=== PATIENT | male | born 1975 | race Caucasian/White ===

== ENCOUNTER 2023-03-07 19:11 | Emergency (ER) | payer OTHER, SELFPAY ==
[2023-03-07] VITALS (15 sets, daily range): BP systolic 144–175; BP diastolic 68–100; PULSE 82–93; RESP 12–18; TEMP 36.4; O2SAT 95–99; BMI 31.9
--- NOTE | 2023-03-07 19:37 | ED.NURSE ---
[facility] paged for stroke code.
--- NOTE | 2023-03-07 19:39 | CRLHL7_ITS ---
For Patients: As a result of the Century Cures Act, medical imaging exams and procedure reports are released immediately into your electronic medical record. You may view this report before your referring provider. If you have questions, please contact your health care provider. CT ANGIOGRAM HEAD DATE: 03/07/2023 CLINICAL HISTORY: Patient with altered mental status. TECHNIQUE: Standard helical CT image acquisition through the intracranial circulation following intravenous administration of contrast material with bolus tracking. 2D and 3D MIP images for post-processing were performed and interpreted on an independent workstation and 3D images were permanently archived. COMPARISON: CT same day. FINDINGS: There is no proximal intracranial large vessel occlusion. There is no intracranial aneurysm. The right internal carotid artery is normal. The right middle cerebral artery and its branches are normal. The right anterior cerebral artery and its branches are normal. The left internal carotid artery is normal. The left middle cerebral artery and its branches are normal. The left anterior cerebral artery and its branches are normal. The anterior communicating artery is well visualized and appears normal. The right vertebral artery and PICA are normal. The left vertebral artery and PICA are normal. The left vertebral artery is dominant. The basilar artery is patent and appears normal. The right posterior cerebral artery is normal. The left posterior cerebral artery is normal. The visualized venous structures are patent. IMPRESSION: Patent proximal intracranial vasculature. Findings were communicated to Dr. Sanon at 8:25 PM. Please note that all CT scans at this facility use dose modulation, iterative reconstruction, and/or weight-based dosing when appropriate to reduce radiation dose to as low as reasonably achievable. Dictated by: Jaskaran Baker MD @ 03/07/2023 20:28:34 (Electronically Signed)
--- NOTE | 2023-03-07 19:39 | CRLHL7_ITS ---
For Patients: As a result of the Century Cures Act, medical imaging exams and procedure reports are released immediately into your electronic medical record. You may view this report before your referring provider. If you have questions, please contact your health care provider. CT ANGIOGRAM NECK DATE: 03/07/2023 CLINICAL HISTORY: Patient with dizziness and altered mental status. TECHNIQUE: Standard helical CT image acquisition of the neck up to the skull base after bolus intravenous contrast enhancement. 2D and 3D MIP images for post-processing were performed and interpreted on an independent workstation and 3D images were permanently archived. COMPARISON: CT same day. FINDINGS: The origins of the great vessels from the aortic arch are patent. The origin of the right vertebral artery is patent. The origin of the left vertebral artery is patent. The common carotid arteries are patent. There is no stenosis at the origin of the right internal carotid artery. There is no stenosis at the origin of the left internal carotid artery. The rest of the cervical segments of the internal carotid arteries are patent up to the skull base. The left vertebral artery is dominant. The cervical segments of the vertebral arteries are patent up to the skull base. The visualized lung apices are unremarkable. The thyroid gland is unremarkable. The soft tissues of the neck are unremarkable. There are degenerative changes in the cervical spine. IMPRESSION: Normal CTA of the neck. Findings were communicated to Dr. Sanon at 8:25 PM. Please note that all CT scans at this facility use dose modulation, iterative reconstruction, and/or weight-based dosing when appropriate to reduce radiation dose to as low as reasonably achievable. Dictated by: Jaskaran Baker MD @ 03/07/2023 20:26:15 (Electronically Signed)
--- NOTE | 2023-03-07 19:40 | CRLHL7_ITS ---
For Patients: As a result of the Century Cures Act, medical imaging exams and procedure reports are released immediately into your electronic medical record. You may view this report before your referring provider. If you have questions, please contact your health care provider. CT HEAD DATE: 03/07/2023 CLINICAL HISTORY: Patient with vertigo and altered mental status. TECHNIQUE: Standard CT scanning of the head was performed. COMPARISON: None. FINDINGS: There is no intracranial hemorrhage. There is no territorial infarction. There are mild microangiopathic changes. There is diffuse parenchymal volume loss. There is no mass effect or midline shift. The calvarium is unremarkable. The orbits are unremarkable. The paranasal sinuses are unremarkable. The mastoid air cells are unremarkable. The soft tissues are unremarkable. IMPRESSION: 1. No intracranial hemorrhage or territorial infarction. 2. Mild microangiopathic changes and diffuse parenchymal volume loss. Please note that all CT scans at this facility use dose modulation, iterative reconstruction, and/or weight-based dosing when appropriate to reduce radiation dose to as low as reasonably achievable. Dictated by: Jaskaran Baker MD @ 03/07/2023 20:22:21 (Electronically Signed)
--- NOTE | 2023-03-07 19:59 | ED_ITS ---
HPI - General Adult General Date Seen: 03/07/23 Chief complaint: Neuro Symptoms/Altered Deficit Stated complaint: Dizzy, not feeling great Time Seen by Provider: 03/07/23 19:36 History of Present Illness HPI narrative: This is a pleasant 47-year-old gentleman who was recently diagnosed with hypertension and dyslipidemia. He was started on a cholesterol med and a blood pressure medicine about a month ago. He has been taking them. He is brought to the ER today by his for evaluation of acute onset of neurologic knows that it began around 5:00 p.m. today while he was at work. 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 He was working most of the afternoon. He was working with chemicals but does not recall any specific symptoms while he was using the sink pan cleaner or other chemicals. He recalls that part of the school or quite hot, about 80?. He was having his lunch break at about 5:00 p.m.. He ate a ham sandwich. After eating he began to feel dizzy. He recalls feeling very dizzy as if the room was spinning and sometimes moving back and forth. His vision went blurry. He thought maybe he needed some fresh air so we got up to walk around. He felt dizzy while walking but was able to keep his balance. He sat down to drink some water and while sitting and drinking he felt somewhat better but not back to normal. He was again trying to walk around he began to get quite dizzy to the point where he was falling sideways in Ej banging into the howard of the hallway. He went outside to get some fresh air and called his . He noticed that when he came outside he started to feel a bit better. He did not have any diplopia. No headache. No palpitations. No chest pain. No shortness of breath. History from his is that when she picked him up she noted him to seem a little confused. He seemed to have cognitive slowing. She did not notice any definite slurred speech, facial droop, or unilateral weakness. He does have a chronic left ankle injury from hockey so always limbs on that leg but no other acute change. He seemed sweaty. He was traveling to [place] last week and had a couple of days of fun partying with his friends but denies any drugs. He was drinking some with skin some alcohol. He got home Tuesday morning and has now been home about 48 hours. He went to work in the late morning today, is usually does not was feeling fine all day until his supper break at about 5. Now that he is here in the ER his symptoms have mostly abated. His cognitive slowing is improved. His dizziness is resolved. Vision is not blurry anymore. Related Data Home Medications Medication Instructions Recorded Confirmed amlodipine 5 mg tablet 5 mg PO DAILY 03/07/23 03/07/23 atorvastatin 20 mg tablet 20 mg PO DAILY 03/07/23 03/07/23 Previous Rx's Medication Instructions Recorded aspirin 325 mg tablet,delayed 325 mg PO DAILY #14 tabs 03/07/23 release Allergies Allergy/AdvReac Type Severity Reaction Status Date / Time penicillin Allergy Uncoded 03/07/23 20:08 [facility] Social History Smoking Status: Never smoker Do you use any of these nicotine containing products: None How often do you have a drink containing alcohol: never AUDIT-C Alcohol total score: 0 Non-prescribed substance use: denies use Exam Narrative: Exam Narrative: Constitutional: Appears well-developed and well-nourished. Alert. Conversant. Non toxic. HENT: Head: Atraumatic. Nose: Nose normal. Mouth/Throat: Oral mucosa is clear and moist. no trismus. Pharynx normal. Tonsils symmetric. No tonsillar enlargement, erythema, or exudate. Eyes: Conjunctivae normal. EOM normal. Pupils equal, round, and reactive to light. No scleral icterus. Neck: Normal range of motion. Neck supple. No tracheal deviation present. No JVD Cardiovascular: Normal rate, regular rhythm. No gallop. No friction rub. No murmur heard. Symmetric radial artery pulses Pulmonary/Chest: Effort normal. No stridor. No respiratory distress. No wheezes. No rales. No rhonchi . No tenderness. Abdominal: Soft. Bowel sounds normal. No distension. No mass. No tenderness. No rebound. No guarding. Musculoskeletal: RUE: Normal range of motion. No tenderness. No deformity LUE: Normal range of motion. No tenderness. No deformity RLE: Normal range of motion. No edema. No tenderness. No deformity LLE: Normal range of motion. No edema. No tenderness. No deformity Neurological: Mental status normal. Attention normal. Alert and oriented x3. GCS 15. Memory normal. Speech fluent. Cognition normal. Cranial Nerves intact II-XII except I did not formally test gag or visual acuity. EOMI. Palate elevates symmetrically and tongue protrudes in the midline. Strength: 5/5 trapezius on the right and left 5/5 deltoid on the right and left 5/5 biceps on the right and left 5/5 triceps on the right and left 5/5 database manager on the right and left 5/5 thumb opposition on the right and le ft 5/5 finger abduction on the right and le ft 5/5 hip flexors (L3) on the right and le ft 5/5 quadriceps (L4) on the right and lef t 5/5 tibialis anterior on the right and l eft 5/5 EHL (L5) on the right and left 5/5 gastrocnemius (S1) on the right and left 5/5 hamstring on the right and left Sensation intact to light touch in both upper extremities (C4-T1) Sensation intact to light touch in Both lower extremities (L4-S1). Finger to nose and coordination normal. Gait normal. Romberg normal. NIHSS equals 0 at time of my initial evaluation. Skin: Skin is warm and dry. No rash noted. No pallor. Normal capillary refill. Psychiatric: Normal mood. Normal affect. Const: Vital Signs, click to edit/add: Vital Signs - 24 hr 03/07/23 19:22 03/07/23 19:38 03/07/23 19:39 Temperature 97.5 F L Pulse Rate Pulse Rate [Pulse Oximeter] 82 Respiratory Rate 16 Blood Pressure Blood Pressure [Ri ght Upper Arm] 168/88 H Pulse Oximetry 98 98 99 Oxygen Delivery Me thod Room Air 03/07/23 19:48 03/07/23 19:50 03/07/23 19:51 Temperature Pulse Rate 86 85 89 Pulse Rate [Pulse Oximeter] Respiratory Rate 12 18 18 Blood Pressure 164/100 H 167/97 H 164/95 H Blood Pressure [Ri ght Upper Arm] Pulse Oximetry 99 99 99 Oxygen Delivery Me thod 03/07/23 20:55 03/07/23 20:59 03/07/23 21:40 Temperature Pulse Rate 88 88 Pulse Rate [Pulse Oximeter] Respiratory Rate 16 Blood Pressure 157/88 H Blood Pressure [Ri ght Upper Arm] Pulse Oximetry 95 99 [facility] 03/07/23 21:52 03/07/23 22:00 03/07/23 22:01 Temperature Pulse Rate 83 91 89 Pulse Rate [Pulse Oximeter] Respiratory Rate 16 16 16 Blood Pressure 144/86 H 145/68 H 161/91 H Blood Pressure [Ri ght Upper Arm] Pulse Oximetry 96 97 95 Oxygen Delivery Me thod 03/07/23 22:05 03/07/23 22:10 03/07/23 22:11 Temperature 97.5 F L Pulse Rate 93 83 85 Pulse Rate [Pulse Oximeter] Respiratory Rate 16 16 Blood Pressure 145/86 H 175/98 H Blood Pressure [Ri ght Upper Arm] Pulse Oximetry 95 96 96 Oxygen Delivery Me thod Course Vital Signs Vital signs: Initial Vital Signs Temperature 97.5 F L 03/07/23 19:22 Temperature Source Temporal Artery Scan 03/07/23 19:22 Pulse Rate 82 03/07/23 19:22 Respiratory Rate 16 03/07/23 19:22 Blood Pressure 168/88 H 03/07/23 19:22 Blood Pressure Mean 114 H 03/07/23 19:22 Blood Pressure Position Sitting 03/07/23 19:22 Pulse Oximetry 98 03/07/23 19:22 Oxygen Delivery Method Room Air 03/07/23 19:22 Vital Signs Temperature 97.5 F L 03/07/23 19:22 Pulse Rate 82 03/07/23 19:22 Respiratory Rate 16 03/07/23 19:22 Blood Pressure 168/88 H 03/07/23 19:22 Pulse Oximetry 98 03/07/23 19:22 Oxygen Delivery Method Room Air 03/07/23 19:22 Temperature 97.5 F L 03/07/23 22:05 Pulse Rate 85 03/07/23 22:11 Respiratory Rate 16 03/07/23 22:11 Blood Pressure 175/98 H 03/07/23 22:11 Pulse Oximetry 96 03/07/23 22:11 Oxygen Delivery Method Room Air 03/07/23 20:59 Medications Administered Medications: Discontinued Medications Generic Name Dose Route Start Last Admin Trade Name Freq PRN Reason Stop Dose Admin Aspirin 325 mg 03/07/23 20:07 03/07/23 20:20 Aspirin Ec 325 Mg Tablet PO 03/07/23 20:08 325 mg ONCE ONE Administration Medical Decision Making [facility] Narrative Medical decision making narrative: This is a pleasant 47-year-old gentleman with a recent diagnosis of hypertension and dyslipidemia who presents to the ER today with an episode of acute neurologic symptoms including vertigo, blurry vision, mild cognitive slowing. Concern here is for possible acute ischemic stroke or hemorrhagic stroke, TIA, partial seizure, among other explanations for his symptoms. Initial concern was for possible stroke. He was within the window for thrombolytics. We activated a stroke team protocol from triage. He was sent straight for noncontrast head CT . I consulted with Dr. dover, stroke Neurology. Head CT is negative for bleed. Neurology recommends aspirin- ordered. CT angio was negative for any significant stenosis. No LV 0. The patient's neurologic symptoms had essentially resolved around the time he arrived here in the ER. Laboratory workup shows no definitive cause for dizziness or vertigo. He does have hyperglycemia, likely indicating that he probably has on recognize diabetes. No other significant electrolyte abnormality. No evidence for any cardiac arrhythmia or ischemia based on his EKG in workup so far. The concern here is whether not this episode of vertigo represents TIA. I am concerned that it does. Does need discussion with Neurology we determined that the patient could be appropriate for knobs admission with MRI in the morning and neurology consultation tomorrow. If the patient does not want to stay, then the patient would need to follow-up outpatient with his primary care provider to arrange an outpatient MRI. Neurology would recommend initiation of aspirin once daily until TIA workup is completed as an outpatient He is noted to be hypertensive with blood pressure about 168/88. Will allow that to run for now. Continue his normal outpatient amlodipine. He is hyperglycemic. No evidence for DKA. Suspect prediabetes or new onset diabetes. He will follow up with primary care for further testing, A1c monitoring and initiation of treatment if necessary. Had a long discussion with the patient and his . Ultimately he does not want to stay in the hospital under any circumstances. He wants to go home. He is instructed to follow-up with his primary care provider soon as possible. He is invited to return to the ER. We can try to get an ER bed MRI tomorrow during business hours, but I am not able to pre schedule that test or guarantee that he would be able to get imaging done if he comes back to the ER tomorrow. He is instructed to return immediately if he has any recurrent neurologic symptoms such as vertigo, dizziness, sweatiness, or any other concerns. He and his verbalized her understanding and wished to go home. Lab Data Labs: Lab Results 03/07/23 Range/Units 19:39 WBC 12.41 H (4.50-11.00) K/uL RBC 5.21 (4.30-5.90) m/uL Hgb 13.8 (13.5-17.5) gm/dL Hct 42.5 (37.0-53.0) % MCV 82 (80-100) fL MCH 27 (26-34) pg MCHC 33 (32-36) gm/dL RDW Coeff of Telly 13.3 (11.5-15.5) % Plt Count 350 (140-440) K/uL Neut % (Auto) 78.2 H (42.0-72.0) % Lymph % (Auto) 14.6 L (20-44) % [place] % (Auto) 5.0 (0.0-11.0) % Eos % (Auto) 1.3 (0.0-7.0) % Baso % (Auto) 0.3 (0.0-3.0) % Neut # (Auto) 9.70 H (1.7-7.0) K/uL Lymph # (Auto) 1.80 (0.90-2.90) K/uL Pickens # (Auto) 0.60 (0.00-0.90) K/UL Eos # (Auto) 0.20 (0.00-0.50) K/uL Baso # (Auto) 0.00 (0.00-0.30) K/uL Abs Immat Gran (auto) 0.10 (0.00-0.30) K/uL Imm/Tot Granulo (auto) 0.6 % INR 0.92 (0.91-1.10) APTT 30 (23-33) Seconds Sodium 139 (135-149) mmol/L Potassium 4.1 (3.6-5.1) mmol/L Chloride 102 (96-114) mmol/L Carbon Dioxide 26 (20-32) mmol/L Anion Gap 11 (7-15) mEq/L BUN 12 (5-24) mg/dL Creatinine 0.8 (0.5-1.5) mg/dL Estimated Creat Clear 112.92 Estimated GFR 109 ml/min Glucose 204 H (60-115) mg/dL Calcium 9.6 (8.4-10.6) mg/dL Imaging Data CT scan - head: Attestation: I have reviewed the pertinent imaging results. Radiologist's impression: MPRESSION: 1. No intracranial hemorrhage or territorial infarction. 2. Mild microangiopathic changes and diffuse parenchymal volume loss. CTA head/neck: Attestation: I have reviewed the pertinent imaging results. Radiologist's impression: IMPRESSION: Normal CTA of the neck. IMPRESSION: Patent proximal intracranial vasculature. ECG Data Attestation: I personally reviewed and interpreted this ECG as follows: Interpretation: Normal sinus rhythm . Rate 94 RI 188 QRS axis normal axis. No pathologic Q-waves. ST segment/T wave: No ST segment elevation or depression QTc: 457 Discharge Plan Discharge Clinical Impression: Brain TIA, Hyperglycemia, Vertigo Patient Disposition: Home, Self-Care Condition: Stable Instructions: Transient Ischemic Attack (ED), Vertigo (DC) Additional Instructions: Please return to the ER immediately if you have any recurrent dizzy spells, blurry vision, confusion, or other neurologic symptoms Follow-up with your primary care provider as soon as possible for re-evaluation. You will need an MRI of your brain for further testing. Until you can see your doctor take aspirin 1 dose daily. Continue on your other blood pressure and cholesterol medications. Prescriptions: New aspirin 325 mg tablet,delayed release (DR/EC) 325 mg PO DAILY Qty: 14 2RF No Action atorvastatin 20 mg tablet 20 mg PO DAILY amlodipine 5 mg tablet 5 mg PO DAILY Follow Up/Referrals: Efraín Lou, JUSTIN, ATC, CSCS [Primary Care Provider] - Stand Alone Forms: [facility] Info Instructions
[2023-03-07 20:04] LABS: Basophils Percent Auto 0.3 % (0.0-3.0); Eosinophils Percent Auto 1.3 % (0.0-7.0); Hematocrit 42.5 % (37.0-53.0); Hemoglobin* 13.8 gm/dL (13.5-17.5); Immature Granulocytes Pct Auto 0.6 %; Lymphocytes Percent Auto 14.6 % (20-44); Mean Corpuscular HGB Conc 33 gm/dL (32-36); Mean Corpuscular Hemoglobin 27 pg (26-34); Mean Corpuscular Volume 82 fL (80-100); Neutrophils Percent Auto 78.2 % (42.0-72.0); Platelet Count* 350 K/uL (140-440); RDW Coefficient of Variation % 13.3 % (11.5-15.5); Red Blood Count 5.21 m/uL (4.30-5.90); White Blood Count* 12.41 K/uL (4.50-11.00)
[2023-03-07] MEDS: ASPIRIN EC 325 MG TABLET PO (20:20)
[2023-03-07 20:26] LABS: Slide Review Reflex No
[2023-03-07 20:34] LABS: Chloride* 102 mmol/L (96-114); Sodium* 139 mmol/L (135-149)
[2023-03-07 20:35] LABS: Potassium* 4.1 mmol/L (3.6-5.1)
[2023-03-07 20:37] LABS: Anion Gap 11 mEq/L (7-15); Carbon Dioxide* 26 mmol/L (20-32); Creatinine* 0.8 mg/dL (0.5-1.5); Est. Creatinine Clearance* 112.92; Estimated Glomerular Filt Rate 109 ml/min
[2023-03-07 20:38] LABS: Blood Urea Nitrogen* 12 mg/dL (5-24); Calcium* 9.6 mg/dL (8.4-10.6); Glucose* 204 mg/dL (60-115)
[2023-03-07 20:39] LABS: INR 0.92 (0.91-1.10); Prothrombin Time 12.9 Seconds
[2023-03-07 22:03] LABS: Partial Thromboplastin Time* 30 Seconds (23-33)
--- NOTE | 2023-03-07 22:18 | PC.NURSE ---
patient DC ambulatory in no distress with . states understanding to DC instructions. no further questions
--- NOTE | 2023-03-09 17:56 | ED.NURSE ---
Patient seen 03/07/[address] Haney, calls requesting note that allows him to return to work. 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 Patient reports he has an appointment tomorrow with PCP to get MRI scheduled. 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
--- NOTE | 2023-05-19 14:43 | ED.NURSE ---
Accessed chart as [facility] was calling to request a refill of his aspirin 324mg that Dr. Haney prescribed. Per Dr. Haney's note, patient needs to follow up with PCP. This information was given to pharmacist and he will be reaching out to patient.
== END 2023-03-07 22:20 | disposition home or self-care (01) ==
PROVIDERS: Emergency Provider Emergency Medicine
DX: G45.8 Other transient cerebral ischemic attacks and related syndromes (principal); R73.9 Hyperglycemia, unspecified
CPT/HCPCS: 36415; 70450; 70496; 70498; 80048; 82962; 85025; 85610; 85730; 93005; 94761; 99284; 99285; A9270; Q9967

== ENCOUNTER 2024-08-26 18:41 | Emergency (ER) | payer OTHER, SELFPAY ==
--- OUTSIDE RECORDS SUMMARY | 2024-08-26 18:43 | XMS_ITS | Clinical Summary ---
[facility] Organization [facility] Address [address] [place] [address] Care Team Providers Care Scrap Shear Operator Name Role Phone Jethro Hunter PA-C Primary Care Provider Source Comments You are receiving this document as you are listed as the primary care provider,follow-up provider, or the patient has been referred to you for consultation.This is in compliance with the Medicare and[employer] EHR Incentive Program,which states Providers who transition their patient to another setting of careor provider of care or refers their patient to another provider of care shouldprovide summary care record for each transition of care or referral. Smart Voicemail Allergies Active Allergy Reactions Criticality Noted Date Comments Penicillins Rash 07/17/2012 Medications Multiple Vitamins-Minerals (MULTIVITAL OR) Take by mouth. 6 Active ascorbic acid (AKA VITAMIN C) 500 MG tablet Take 1 Tablet (500 mg) by mouth two times a day. 6 Active ibuprofen (MOTRIN) 800 MG tablet Take 1 Tab by mouth every 8 hours as needed for Pain. 30 Tab 7 Active cholecalciferol (VITAMIN D3) 25 MCG (1000 UT) tablet Take 1 Tablet (1,000 Units) by mouth daily. Active aspirin EC 81 MG enteric coated tablet Take 1 Tablet (81 mg) by mouth daily. 90 Tablet 3 4 Active metFORMIN XR (GLUCOPHAGE XR) 500 MG 24 hour release tabletIndications:T ype 2 diabetes mellitus treated without insulin (HRC) Take 500mg XR (1 tab) daily for 1 week, then 1000mg XR (2 tabs) daily for 1 week, then 1500mg XR (3 tabs) daily for 1 week, then 2000mg XR (4 tabs) daily. 120 Tablet 3 5 Active amLODIPine-benazepr il (LOTREL) 5-20 MG capsuleIndications: Essential hypertension (HRC) Take 1 Capsule by mouth daily. 90 Capsule 3 5 Active atorvastatin (LIPITOR) 20 MG tabletIndications:H yperlipidemia, unspecified hyperlipidemia type (HRC) Take 1 Tablet (20 mg) by mouth daily. 90 Tablet 3 5 Active Active Problems Problem Noted Date Diagnosed Date Essential hypertension 01/26/2023 Overview (01/26/2023): CBC, CMP and TSH 12/2022 WNL Type 2 diabetes mellitus with hyperglycemia 01/01 Overview (01/20/2023): A1C 6.5%, will need statin, needs prevnar 20 Mixed hyperlipidemia 01/20/2023 Overview (01/20/2023): Lipid panel 12/2022 chopl 236, HDL 37, LDL 127, tri 358, shoulder start a statin as he is a DM2 Obesity due to excess calori es, unspecified obesity severity 01/17/2023 Overview (01/20/2023): BMI 34.6, TSH 12/2022 1.58 Gastroesophageal reflux disease without esophagi tis 01/17/2023 Overview (01/17/2023): Is on omeprazole 20mg Qdaily OTC Vitamin D deficiency 01/17/2023 Overview (01/20/2023): Vit D 12/2022 37 Resolved Problems Problem Noted Date Diagnosed Date Resolved Date Elevated blood pressure read ing without diagnosis of hypertension 01/17/2023 01/26/2023 Overview (01/26/2023): Noted on first visit, F/U on repeat, Encounters Date Type Department Care Team Description 06/29/2024 Results Follow-Up [address] [phone] Jethro Hunter PA-C 06/28/2024 5:10 PM DIDACTIC PROGRAM IN DIETETICS DIRECTOR Lab Visit [address] [phone] Hyperlipidemia, unspecified hyperlipidemia type (HRC); Essential hypertension (HRC) 06/28/2024 4:30 PM DIDACTIC PROGRAM IN DIETETICS DIRECTOR Office Visit [address] [phone] Jethro Hunter PA-C Type 2 diabetes mellitus treated without insulin (HRC) (Primary Dx); Essential hypertension (HRC); Hyperlipidemia, unspecified hyperlipidemia type (HRC); Screen for colon cancer 06/15/[address] [phone] Jethro Hunter PA-C Refill (atorvastatin (LIPITOR) 20 MG tablet [Pharmacy Med Name: Atorvastatin Calcium Oral Tablet 20 MG]; amLODIPine-benazepril (LOTREL) 5-20 MG capsule [Pharmacy Med Name: amLODIPine Besy-Benazepril HCl Oral Capsule 5-20 MG]) 06/06/[address] [address] Radha Gan LAB RESULTS 06/05/2024 6:20 PM DIDACTIC PROGRAM IN DIETETICS DIRECTOR Lab Visit [address] [phone] Type 2 diabetes mellitus (HRC) 06/05/2024 6:00 PM DIDACTIC PROGRAM IN DIETETICS DIRECTOR Office Visit [place] [address] [facility] [address] [place] [phone] Samantha Kilgore MD Acute bronchitis, unspecified organism; Pre-diabetes from Last 3 Months Immunizations Immunization Administration Dates Next Due Td (7+ yrs) 12/25/2003 Family History Medical History Relation Name Comments HTN Mother Yudy Stroke Mother Yudy x2 Cancer Maternal Aunt 1 Margarita Cancer Maternal Aunt 2 Funmilayo Stroke Maternal Aunt 3 Katey Khalil Relation Name Status Comments Mother Yudy Maternal Aunt 1 Margarita Maternal Aunt 2 Funmilayo Maternal Aunt 3 Katey Khalil Social History Tobacco Use Types Packs/Day Years Used Date Smoking Tobacco: Never Smokeless Tobacco: Never Tobacco Cessation:Counseling Given: Not Answered Alcohol Use Standard Drinks/Week Comments Yes 0 (1 standard drink = 0.6 oz pur e alcohol) PHQ-2 Answer Date Recorded PHQ-2 Score 0 06/28/2024 Financial Resource Strain Answer Date R ecorded Is it hard for you to pay fo r the very basics like food, housing, medical care or heating? No 01/17/2023 Food Insecurity Answer Date Recorded Does your food run out before you have the money to buy more? No 01/17/2023 Transportation Needs Answer Date Record ed Does a lack of transportatio n keep you from your medical appointments or from getting your medications? No 023 Sex and Gender Information Value Date Recorded Sex Assigned at Not on file Legal Sex Male 5:55 AM CDT Gender Identity Not on file Sexual Orientation Not on file Last Filed Vital Signs Vital Sign Reading Time Taken Comments Blood Pressure 129/78 06/28/2024 4:29 PM DIDACTIC PROGRAM IN DIETETICS DIRECTOR Pulse 70 06/28/2024 4:29 PM DIDACTIC PROGRAM IN DIETETICS DIRECTOR Temperature 36.8 C (98.3 F) 06/05/2024 5:26 PM DIDACTIC PROGRAM IN DIETETICS DIRECTOR Respiratory Rate 16 06/28/2024 4:14 PM DIDACTIC PROGRAM IN DIETETICS DIRECTOR Oxygen Saturation 98% 06/05/2024 5:26 PM DIDACTIC PROGRAM IN DIETETICS DIRECTOR Inhaled Oxygen Concentration - - Weight 105.2 kg (232 lb) 06/28/2024 4:14 PM DIDACTIC PROGRAM IN DIETETICS DIRECTOR Height 172.1 cm (5' 7.75) 06/28/2024 4:14 PM CS T Body Mass Index 35.54 06/28/2024 4:14 PM DIDACTIC PROGRAM IN DIETETICS DIRECTOR Plan of Treatment Upcoming Encounters Date Type Department Care Team (Late st Contact Info) Description 08/27/2024 5:00 PM CDT Appointment [place] [address] [facility] [address] [place] [phone] Jethro Hunter PA-C [address] [place] [address] Health Maintenance Due Date Last Done Comments HepB Vaccine (1) 1993 Pneumococcal Vaccine (1 of 2 - PCV) 1993 COVID-19 Vaccine (1 - season) 2024 Influenza Vaccine (#1) 2024 Adult Preventive Visit 01/18/2024 01/17/2023 FIT Colon Cancer Screening 05/26/2024 05/26/2023 Zoster/Shingles Vaccine (1 of 2) 2024 Diabetes: HGBA1C 12/03/2024 06/05/2024, , 01/17/2023 Diabetes: Eye Exam 05/09/2025 05/09/2024 (C ompleted), 06/08/2023 (Completed) DTaP/Tdap/Td Vaccine (2 - Tdap) 05/22/2025 05/22/2015 (Completed), 12/25/2003 Diabetes: Urine Microalbumin 06/05/2025 06/05/2024, 05/24/2023 Diabetes: Creatinine 06/28/2025 06/28/2024, 05/24/2023, 01/17/2023, Additional history exists Diabetes: Foot Exam 06/28/2025 06/28/2024 ( Completed), 06/10/2023 (Completed) Diabetes: Lipid Panel 06/28/2029 06/28/2024 , 05/24/2023, 01/17/2023 HIV Screening (Preventive Services) Completed 01/17/2023 Hep C Screening (Preventive Services) Completed 01/17/2023 Cholesterol Discontinued 06/28/2024, 05/03, 01/17/2023 HepA Vaccine Aged Out No longer eligi ble based on patient's age to complete this topic Hib Vaccine Aged Out No longer eligi ble based on patient's age to complete this topic IPV (Polio) Vaccine Aged Out No longe r eligible based on patient's age to complete this topic MCV4 Vaccine Aged Out No longer eligi ble based on patient's age to complete this topic Meningococcal B Vaccine Aged Out No l onger eligible based on patient's age to complete this topic Procedures Procedure Name Priority Date/Time Associated Diagnosis Comments BASIC METABOLIC PANEL Routine 06/28/2024 5:05 PM DIDACTIC PROGRAM IN DIETETICS DIRECTOR Essential hypertension (HRC) LIPID PANEL & DIRECT LDL (IF NEEDED) Routine 06/28/2024 5:05 PM DIDACTIC PROGRAM IN DIETETICS DIRECTOR Hyperlipidemia, unspecified hyperlipidemia type (HRC) ALBUMIN/CREAT RATIO Routine 06/05/2024 6:13 PM DIDACTIC PROGRAM IN DIETETICS DIRECTOR Type 2 diabetes mellitus (HRC) HGB A1C Routine 06/05/2024 6:09 PM DIDACTIC PROGRAM IN DIETETICS DIRECTOR Type 2 diabetes mellitus (HRC) FIT,OCCULT BLOOD, STOOL Routine 05/26/2023 8:00 AM DIDACTIC PROGRAM IN DIETETICS DIRECTOR Screening for colon cancer HIV 1/2 AG/AB 4TH GEN Routine 01/17/2023 6:09 PM CDT Routine screening for STI (sexually transmitted infection) HEPATITIS C ANTIBODY, WITH REFLEX Routine 01/17/2023 6:09 PM CDT Routine screening for STI (sexually transmitted infection) from Last 3 Months or Most Recently Relevant to Health Maintenance Results * (ABNORMAL) Lipid Panel & Direct LDL (if Needed) (06/28/2024 5:05 PM DIDACTIC PROGRAM IN DIETETICS DIRECTOR) Cholesterol 168 0 - 199 mg/dL 06/29/2024 8:52 AM [facility] Triglyceride 333(H) <=149 mg/dL 06/29/2024 8:52 AM [facility] HDL Cholesterol 34(L) >=40 mg/dL 8:52 AM [facility] LDL, Calculated 67 <130 mg/dL 8:52 AM [facility] Non HDL Chol, Calculated 134 <=159 mg/dL 06/29/2024 8:52 AM [facility] Cholesterol/HDL Ratio 4.9 <=5.0 06/29/2024 8:52 AM [facility] Hours Fasting 0.0 8 - 12 Hours 06/29/2024 8:52 AM [facility] Blood Venipuncture / Unknown 06/28/2024 5:05 PM DIDACTIC PROGRAM IN DIETETICS DIRECTOR 06/28/2024 5:05 PM DIDACTIC PROGRAM IN DIETETICS DIRECTOR Jethro Hunter PA-C LAB_1 Final Result Performing Organization Address [facility] Co de Phone Number [facility] [address] [place] [address] * (ABNORMAL) Basic Metabolic Panel (06/28/2024 5:05 PM DIDACTIC PROGRAM IN DIETETICS DIRECTOR) [facility] Sodium 136 136 - 145 mmol/L 06/29/2024 8:52 AM [facility] Potassium 4.1 3.5 - 5.1 mmol/L 06/29/2024 8:52 AM [facility] Chloride 101 98 - 109 mmol/L 06/29/2024 8:52 AM [facility] CO2 27 20 - 29 mmol/L 06/29/2024 8:52 AM [facility] Anion Gap 8 6 - 16 mmol/L 06/29/2024 8:52 AM [facility] Calcium 9.4 8.4 - 10.4 mg/dL 06/29/2024 8:52 AM [facility] BUN 16 7 - 26 mg/dL 06/29/2024 8:52 AM [facility] Creatinine 0.86 0.73 - 1.18 mg/dL 06/29/2024 8:52 AM [facility] Glucose 119(H) 70 - 100 mg/dL 06/29/2024 8:52 AM [facility] Comment:The given reference range is for the fasting state. Non-fasting reference range for glucose is 70 - 180 mg/dL. GFR, Estimated >60 >60 mL/min/1.7 3m2 06/29/2024 8:52 AM [facility] Hours Fasting 0.0 8 - 12 Hours 06/29/2024 8:52 AM [facility] Blood Venipuncture / Unknown 06/28/2024 5:05 PM DIDACTIC PROGRAM IN DIETETICS DIRECTOR 06/28/2024 5:05 PM DIDACTIC PROGRAM IN DIETETICS DIRECTOR Jethro J Dale PA-C LAB_1 Final Result Performing Organization Address [facility] de Phone Number [place] [phone] * Albumin/Creatinine Ratio,Random Urine (06/05/2024 6:13 PM DIDACTIC PROGRAM IN DIETETICS DIRECTOR) Albumin/Creati nine Ratio, Urine, Random 20 <30 mg/g 06/06/2024 9:21 AM [facility] Albumin, Urine, Random 24.2 mg/L 06/06/2024 9:21 AM [facility] Creatinine, Urine, Random 121 >20 mg/dL mg/dL 06/06/2024 9:21 AM [facility] Urine Non-blood Collection / Unknown 06/05/2024 6:13 PM DIDACTIC PROGRAM IN DIETETICS DIRECTOR 06/05/2024 6:13 PM [facility] Jethro Hunter PA-C LAB_1 Final Result Performing Organization Address [facility] Phone Number [place] [phone] * (ABNORMAL) Hgb A1C (06/05/2024 6:09 PM DIDACTIC PROGRAM IN DIETETICS DIRECTOR) Pathologist [facility] Hemoglobin A1C 7.1(H) <=5.6 % 06/06/2024 8:11 AM [facility] Estimated Average Glucose (Calc) 157 < 117 mg/dL 06/06/2024 8:11 AM [facility] Comment:Estimated average gl ucose (eAG) converts A1c into glucose units (mg/dL) and estimates average glucose over the past approximately 3 months. The eAG reference interval (<117 mg/dL) corresponds to an A1c of <5.7%. Blood Venipuncture / Unknown 06/05/2024 6:09 PM DIDACTIC PROGRAM IN DIETETICS DIRECTOR 06/05/2024 6:09 PM [facility] Narrative COUNT INCLUDES THE [facility] - 06/06/2024 8:11 AM DIDACTIC PROGRAM IN DIETETICS DIRECTOR For patients not previously diagnosed with diabetes: 5.7-6.4%: Increased risk for diabetes 6.5% and greater: Diagnostic for diabetes For patients diagnosed with diabetes: <8.0%: Goal of therapy for ages 18-75 Clinicians may recommend a higher or lower goal for specific individuals. Jethro Hunter PA-C LAB_1 Final Result Performing Organization Address [facility] Co de Phone Number [facility] [address] * FIT Colon Rectal Cancer Screening (05/26/2023 8:00 AM DIDACTIC PROGRAM IN DIETETICS DIRECTOR) FIT Specimen 1 Negative Negative 05/27/2023 3:24 AM DIDACTIC PROGRAM IN DIETETICS DIRECTOR [facility] Stool 05/26/2023 8:00 AM DIDACTIC PROGRAM IN DIETETICS DIRECTOR 05/26/2023 10:12 PM DIDACTIC PROGRAM IN DIETETICS DIRECTOR Jethro Hunter PA-C LAB_1 Final Result Performing Organization Address [facility] Co de Phone Number [facility] [address] [phone] * HIV 1/2 Ag/Ab 4th Generation (01/17/2023 6:09 PM CDT) HIV 1/2 Antigen/Antib shira (4th generation) Negative (Non Reactive) Negative (Non Reactive) 01/17/2023 10:28 PM CDT [facility] Comment:HIV-1 p24 Antigen an d HIV-1/HIV-2 Antibody not detected Blood Venipuncture / Unknown 01/17/2023 6:09 PM CDT 01/17/2023 6:09 PM CDT Evans Schreiber MD LAB_1 Final Result Performing Organization Address City/[facility]/ZIP Co de Phone Number [facility] [address] [place], [place] [phone] [place] [address] * Hepatitis C Antibody, with Reflex (01/17/2023 6:09 PM CDT) Hepatitis C Antibody Negative (Non Reactive) Negative (Non Reactive) 01/17/2023 10:28 PM CDT [facility] Comment:Antibodies to HCV no t detected. Does not exclude the possiblity of exposure to HCV. Blood Venipuncture / Unknown 01/17/2023 6:09 PM CDT 01/17/2023 6:09 PM CDT Evans Schreiber MD LAB_1 Final Result [facility] [address] [place] [address], [facility] from Last 3 Months or Most Recently Relevant to Health Maintenance Insurance [facility] Care Teams Scrap Shear Operator Relationship Specialty Start Date End Date Jethro Hunter PA-C [address] [place] [address] PCP - General Physician [employer] Parker 03/10/23
--- OUTSIDE RECORDS SUMMARY | 2024-08-26 18:43 | XMS_ITS | Encounter Summary ---
Author Organization [employer] Address [address] [place] [address] Care Team Providers Care Lacquer Sizer Name Role Phone Jethro Hunter PA-C Primary Care Provider Encounter Details Date Type Department Care Team (Late st Contact Info) Description 06/29/2024 Results Follow-Up [place] [address] [facility] Medicine [address] [place] [phone] Jethro Hunter PA-C [address] [place] [address] Social History Tobacco Use Types Packs/Day Years Used Date Smoking Tobacco: Never Smokeless Tobacco: Never Alcohol Use Standard Drinks/Week Comments Yes 0 [...] on file Sexual Orientation Not on file documented as of this encounter Plan of Treatment Upcoming Encounters Date Type Department Care Team (Late st Contact Info) Description 08/27/2024 5:00 PM CDT Appointment [place] [address] [facility] Medicine [address] [place] [address] Jethro Hunter PA-C [address] [place] [address] documented as of this encounter Visit Diagnoses Not on filedocumented in this encounter Care Teams Lacquer Sizer Relationship Specialty Start Date End Date Jethro Hunter PA-C [address] [place], [place] [phone] PCP - General Physician Website/Blog Editor 03/10/23 documented as of this encounter
--- OUTSIDE RECORDS SUMMARY | 2024-08-26 18:43 | XMS_ITS | Clinical Summary ---
Author Organization [facility] Address [address] [place] [address] Care Team Providers Care Elevator Starter Name Role Phone Clinic, [facility] Pr ovider Allergies Active Allergy Reactions Criticality Noted Date Comments Penicillins 09/30/2008 Medications Omeprazole (PRILOSEC PO) Active order for DMEIndications: Knee injury, left, initial encounter Equipment being ordered: knee brace 1 Device 9 Active ibuprofen (ADVIL/MOTRIN) 800 MG tabletIndicatio ns:Knee injury, left, initial encounter Take 1 tablet (800 mg) by mouth every 8 hours as needed for moderate pain 30 tablet 1 9 Active Active Problems No known active problems Social History Tobacco Use Types Packs/Day Years Used Date Smoking Tobacco: Never Smokeless Tobacco: Never Alcohol Use Standard Drinks/Week Comments Not Asked 0 (1 standard drink = 0.6 oz pur e alcohol) Sex and Gender Information Value Date Recorded Sex Assigned at Not on file 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 Gender Identity Not on file Sexual Orientation Not on file Last Filed Vital Signs Vital Sign Reading Time Taken Comments Blood Pressure 126/74 11/08/2018 3:11 PM CDT Pulse 82 11/08/2018 3:11 PM CDT Temperature 37.1 C (98.7 F) 11/08/2018 3:11 PM CDT Respiratory Rate 16 11/08/2018 3:11 PM CDT Oxygen Saturation 96% 11/08/2018 3:11 PM CDT Inhaled Oxygen Concentration - - Weight 103.4 kg (228 lb) 11/08/2018 3:11 PM CDT Height - - Body Mass Index - - Plan of Treatment Not on file Insurance [facility] Care Teams Elevator Starter Relationship Specialty Start Date End Date [facility] [id number] [place] [address] PCP - General 09/28/22
[2024-08-26 18:58] VITALS: BP 155/91; PULSE 86; RESP 18; TEMP 36.9; O2SAT 97; BMI 33.7
--- NOTE | 2024-08-26 19:24 | ED.WOUNDLAC ---
HPI - Wound/Laceration General Date Seen: 08/26/24 Chief Complaint: Laceration/Wound Stated Complaint: Head lac Time Seen by Provider: 08/26/24 19:09 Source: patient Mode of arrival: ambulatory Limitations: no limitations History of Present Illness HPI narrative: Patient is a 48-year-old male presenting for laceration to his forehead. He was putting away a auto damage adjuster it was tried a bungee the auto damage adjuster out when it slipped and hit him in the head. Did not lose consciousness. His family is with him and states he has been acting normally. Denies weakness or numbness. Denies headache, vision changes. No other concerns noted at this time. Did state there was a piece of skin hanging off that he pulled off. Related Data Home Medications ?Medication ?Instructions ?Recorded ?Confirmed amlodipine 5 mg tablet 5 mg PO DAILY 03/07/23 08/26/24 atorvastatin 20 mg tablet 20 mg PO DAILY 03/07/23 08/26/24 aspirin 81 mg tablet,delayed 81 mg PO DAILY 08/26/24 08/26/24 release metformin 500 mg tablet,extended PO 08/26/24 release 24 hr Allergies Allergy/AdvReac Type Severity Reaction Status Date / Time penicillin Allergy Uncoded 03/07/23 20:08 [facility] PFS Social History Smoking Status: Never smoker Do you use any of these nicotine containing products: None How often do you have a drink containing alcohol: never AUDIT-C Alcohol total score: 0 Non-prescribed substance use: denies use Exam Narrative: Exam Narrative: Const: Well-nourished, Well-developed, in mild distress Eyes: PERRL, no conjunctival injection, and symmetrical lids HENT: Atraumatic external nose and ears. Moist mucous membranes. MSK:Extremities w/o deformity, Normal Active ROM Skin: Warm, Dry. 3 cm laceration to mid forehead. Neuro: Normal Muscle tone, No focal neurological deficits. Psych: Awake, Alert, & Oriented x3. Appropriate mood and affect. Const: Vital Signs, click to edit/add: Vital Signs - 24 hr 08/26/24 18:58 Temperature 98.4 F Pulse Rate [Right Pulse Oximeter] 86 Respiratory Rate 18 Blood Pressure [Ri ght Upper Arm] 155/91 H Pulse Oximetry 97 Oxygen Delivery Me thod Room Air Course Vital Signs Vital signs: Initial Vital Signs Temperature 98.4 F 08/26/24 18:58 Temperature Source Temporal Artery Scan 08/26/24 18:58 Pulse Rate 86 08/26/24 18:58 Pulse Rhythm Regular 08/26/24 18:58 Pulse Strength 3+ Normal 08/26/24 18:58 Respiratory Rate 18 08/26/24 18:58 Blood Pressure 155/91 H 08/26/24 18:58 Blood Pressure Mean 112 H 08/26/24 18:58 Blood Pressure Position Sitting 08/26/24 18:58 Pulse Oximetry 97 08/26/24 18:58 Oxygen Delivery Method Room Air 08/26/24 18:58 Vital Signs Temperature 98.4 F 08/26/24 18:58 Pulse Rate 86 08/26/24 18:58 Respiratory Rate 18 08/26/24 18:58 Blood Pressure 155/91 H 08/26/24 18:58 Pulse Oximetry 97 08/26/24 18:58 Oxygen Delivery Method Room Air 08/26/24 18:58 Temperature 98.4 F 08/26/24 18:58 Pulse Rate 86 08/26/24 18:58 Respiratory Rate 18 08/26/24 18:58 Blood Pressure 155/91 H 08/26/24 18:58 Pulse Oximetry 97 08/26/24 18:58 Oxygen Delivery Method Room Air 08/26/24 18:58 MDM - Wound/Laceration MDM Narrative Medical decision making narrative: Patient is a 48-year-old male presenting to the emergency department for a forehead laceration. No neurological symptoms at this time. His family member states he is acting normally. No other concerns noted. Tolerated the procedure well. Five sutures were placed. His last tetanus was 7 years ago and do not believe I need to renew it. I do not believe antibiotics are necessary at this time. He will be discharged. Discharge Plan Discharge Clinical Impression: Laceration Patient Disposition: Home, Self-Care Condition: Stable Instructions: Facial Laceration (ED) Additional Instructions: Follow-up with your primary care provider or urgent care in the next 7 days to have the 5 sutures removed. For next 6 months, once sutures are removed, whenever you go outside put a dab of sunscreen over the laceration site to improve scar appearance. Topical antibiotics are not necessary at this time. Patient can shower but do not submerge the laceration until sutures are removed Prescriptions: No Action aspirin 81 mg tablet,delayed release (DR/EC) 81 mg PO DAILY metformin 500 mg tablet extended release 24 hr PO atorvastatin 20 mg tablet 20 mg PO DAILY amlodipine 5 mg tablet 5 mg PO DAILY Follow Up/Referrals: Efraín Lou, JUSTIN, ATC, CSCS [Road Oiler Certified] - Stand Alone Forms: [facility] Info Instructions Procedures Laceration Forehead: Name of person performing procedure: Timur Alonso Site: face (Mid forehead) Size (cm): 3 Description: linear, irregular and clean Depth: simple, single layer Local Anesthetic: lidocaine 1% Amount of anesthesia used (mL): 3 Pre-repair: wound explored, irrigated extensively and deep structures intact Skin layer closed with: nylon Size (cm): 4-0 Number of sutures: 5 Technique: simple, interrupted
--- OUTSIDE RECORDS SUMMARY | 2024-08-26 19:29 | XMS_ITS | Clinical Summary ---
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 [id number] [place] [id number] PCP - General 09/28/22
--- OUTSIDE RECORDS SUMMARY | 2024-08-26 19:29 | XMS_ITS | Encounter Summary ---
Author Organization [employer] Address [address] [place] [address] Care Team Providers Care Nuclear Officer Name Role Phone Jethro Hunter PA-C Primary Care Provider Encounter Details Date Type Department Care Team (Late st Contact Info) Description 06/29/2024 Results Follow-Up [place] [address] [facility] [address] [place] [phone] Jethro Hunter PA-C [address] [place] [address] Social History Tobacco Use Types Packs/Day Years [...] Info) Description 08/27/2024 5:00 PM CDT Appointment [place] [address] [facility] [address] [place] [address] Jethro Hunter PA-C [address] [place] [address] documented as of this encounter Visit Diagnoses Not on filedocumented in this encounter Care Teams Nuclear Officer Relationship Specialty Start Date End Date Jethro Hunter PA-C [address] [place], [place] [phone] PCP - General Physician Scrum Master 03/10/23 documented as of this encounter
--- OUTSIDE RECORDS SUMMARY | 2024-08-26 19:29 | XMS_ITS | Clinical Summary ---
[facility] Organization [facility] Address [address] [place] [address] Care Team Providers Care Washer Operator Name Role Phone Jethro Hunter PA-C Primary Care Provider Source Comments You are receiving this document as you are listed as the primary care provider,follow-up provider, or the patient has been referred to you for consultation.This is in compliance with the Medicare and[facility] EHR Incentive Program,which states Providers who transition their patient to another setting of careor provider of care or refers their patient to another provider of care shouldprovide summary care record for each transition of care or referral. Duroline Allergies Active Allergy Reactions Criticality Noted Date [...] Department Care Team Description 06/29/2024 Results Follow-Up [address] [phone] Jethro Hunter PA-C 06/28/2024 5:10 PM [facility] Lab Visit [address] [phone] Hyperlipidemia, unspecified hyperlipidemia type (HRC); Essential hypertension (HRC) 06/28/2024 4:30 PM [facility] Office Visit [address] [address] Jethro Hunter PA-C Type 2 diabetes mellitus treated without insulin (HRC) (Primary Dx); Essential hypertension (HRC); Hyperlipidemia, unspecified hyperlipidemia type (HRC); Screen for colon cancer 06/15/[address] [address] Jethro Hunter PA-C Refill (atorvastatin (LIPITOR) 20 MG tablet [Pharmacy Med Name: Atorvastatin Calcium Oral Tablet 20 MG]; amLODIPine-benazepril (LOTREL) 5-20 MG capsule [Pharmacy Med Name: amLODIPine Besy-Benazepril HCl Oral Capsule 5-20 MG]) 06/06/[address] [phone] Radha Gan LAB RESULTS 06/05/2024 6:20 PM [facility] Lab Visit [address] [address] Type 2 diabetes mellitus (HRC) 06/05/2024 6:00 PM [facility] Office Visit [place] [address] [facility] [address] [place] [phone] Samantha Kilgore MD Acute bronchitis, unspecified organism; [...] Comments Blood Pressure 129/78 06/28/2024 4:29 PM [facility] Pulse 70 06/28/2024 4:29 PM [facility] Temperature 36.8 C (98.3 F) 06/05/2024 5:26 PM [facility] Respiratory Rate 16 06/28/2024 4:14 PM [facility] Oxygen Saturation 98% 06/05/2024 5:26 PM [facility] Inhaled Oxygen Concentration - - Weight 105.2 kg (232 lb) 06/28/2024 4:14 PM [facility] Height 172.1 cm (5' 7.75) 06/28/2024 4:14 PM CS T Body Mass Index 35.54 06/28/2024 4:14 PM [facility] Plan of Treatment Upcoming Encounters Date Type Department Care Team (Late st Contact Info) Description 08/27/2024 5:00 PM CDT Appointment [place] [address] [facility] [address] [place] [address] Jethro Hunter PA-C [address] [place] [address] Health Maintenance Due Date Last Done Comments [...] BASIC METABOLIC PANEL Routine 06/28/2024 5:05 PM [facility] Essential hypertension (HRC) LIPID PANEL & DIRECT LDL (IF NEEDED) Routine 06/28/2024 5:05 PM [facility] Hyperlipidemia, unspecified hyperlipidemia type (HRC) ALBUMIN/CREAT RATIO Routine 06/05/2024 6:13 PM [facility] Type 2 diabetes mellitus (HRC) HGB A1C Routine 06/05/2024 6:09 PM [facility] Type 2 diabetes mellitus (HRC) FIT,OCCULT BLOOD, STOOL Routine 05/26/2023 8:00 AM [facility] Screening for colon cancer HIV 1/2 AG/AB 4TH GEN Routine 01/17/2023 6:09 PM CDT Routine screening for STI (sexually transmitted infection) HEPATITIS C ANTIBODY, WITH REFLEX Routine 01/17/2023 6:09 PM CDT Routine screening for STI (sexually transmitted infection) from Last 3 Months or Most Recently Relevant to Health Maintenance Results * (ABNORMAL) Lipid Panel & Direct LDL (if Needed) (06/28/2024 5:05 PM [facility]) Cholesterol 168 0 - 199 mg/dL 06/29/2024 8:52 AM [facility] Triglyceride 333(H) <=149 mg/dL 06/29/2024 8:52 AM [facility] HDL Cholesterol 34(L) >=40 mg/dL 8:52 AM [facility] LDL, Calculated 67 <130 mg/dL 8:52 AM [facility] Non HDL Chol, Calculated 134 <=159 mg/dL 06/29/2024 8:52 AM [facility] Cholesterol/HDL Ratio 4.9 <=5.0 06/29/2024 8:52 AM [facility] Hours Fasting 0.0 8 - 12 Hours 06/29/2024 8:52 AM [facility] Blood Venipuncture / Unknown 06/28/2024 5:05 PM [facility] 06/28/2024 5:05 PM [facility] Jethro Hunter PA-C LAB_1 Final Result Performing Organization Address [facility] Co de Phone Number [facility] [address] [place] [phone] * (ABNORMAL) Basic Metabolic Panel (06/28/2024 5:05 PM [facility]) [facility] Sodium 136 136 - 145 mmol/L 06/29/2024 8:52 AM [facility] Potassium 4.1 3.5 - 5.1 mmol/L 06/29/2024 8:52 AM [facility] Chloride 101 98 - 109 mmol/L 06/29/2024 8:52 AM [facility] CO2 27 20 - 29 mmol/L 06/29/2024 8:52 AM [facility] Anion Gap 8 6 - 16 mmol/L 06/29/2024 8:52 AM [facility] Calcium 9.4 8.4 - 10.4 mg/dL 06/29/2024 8:52 AM [facility] BUN 16 7 - 26 mg/dL 06/29/2024 8:52 AM [facility] Creatinine 0.86 0.73 - 1.18 mg/dL 06/29/2024 8:52 AM [facility] Glucose 119(H) 70 - 100 mg/dL 06/29/2024 8:52 AM [facility] Comment:The given reference range is for the fasting state. Non-fasting reference range for glucose is 70 - 180 mg/dL. GFR, Estimated >60 >60 mL/min/1.7 3m2 06/29/2024 8:52 AM [facility] Hours Fasting 0.0 8 - 12 Hours 06/29/2024 8:52 AM [facility] Blood Venipuncture / Unknown 06/28/2024 5:05 PM [facility] 06/28/2024 5:05 PM [facility] Jethro J Dale PA-C LAB_1 Final Result Performing Organization Address [facility] de Phone Number [place] [phone] * Albumin/Creatinine Ratio,Random Urine (06/05/2024 6:13 PM [facility]) Albumin/Creati nine Ratio, Urine, Random 20 <30 mg/g 06/06/2024 9:21 AM [facility] Albumin, Urine, Random 24.2 mg/L 06/06/2024 9:21 AM [facility] Creatinine, Urine, Random 121 >20 mg/dL mg/dL 06/06/2024 9:21 AM [facility] Urine Non-blood Collection / Unknown 06/05/2024 6:13 PM [facility] 06/05/2024 6:13 PM [facility] Jethro Hunter PA-C LAB_1 Final Result Performing Organization Address [facility] Phone Number [place] [phone] * (ABNORMAL) Hgb A1C (06/05/2024 6:09 PM [facility]) Pathologist [facility] Hemoglobin A1C 7.1(H) <=5.6 % 06/06/2024 8:11 AM [facility] Estimated Average Glucose (Calc) 157 < 117 mg/dL 06/06/2024 8:11 AM [facility] Comment:Estimated average gl ucose (eAG) converts A1c into glucose units (mg/dL) and estimates average glucose over the past approximately 3 months. The eAG reference interval (<117 mg/dL) corresponds to an A1c of <5.7%. Blood Venipuncture / Unknown 06/05/2024 6:09 PM [facility] 06/05/2024 6:09 PM [facility] Narrative [facility] - 06/06/2024 8:11 AM [facility] For patients not previously diagnosed with diabetes: 5.7-6.4%: Increased risk for diabetes 6.5% and greater: Diagnostic for diabetes For patients diagnosed with diabetes: <8.0%: Goal of therapy for ages 18-75 Clinicians may recommend a higher or lower goal for specific individuals. Jethro Hunter PA-C LAB_1 Final Result Performing Organization Address [facility] Co de Phone Number [facility] [address] * FIT Colon Rectal Cancer Screening (05/26/2023 8:00 AM [facility]) FIT Specimen 1 Negative Negative 05/27/2023 3:24 AM [facility] Stool 05/26/2023 8:00 AM [facility] 05/26/2023 10:12 PM [facility] Jethro Hunter PA-C LAB_1 Final Result Performing Organization Address [facility] Co de Phone Number [facility] [address] [phone] * HIV 1/2 Ag/Ab 4th Generation (01/17/2023 6:09 PM CDT) HIV 1/2 Antigen/Antib shira (4th generation) Negative (Non Reactive) Negative (Non Reactive) 01/17/2023 10:28 PM CDT [facility] Comment:HIV-1 p24 Antigen an d HIV-1/HIV-2 Antibody not detected Blood Venipuncture / Unknown 01/17/2023 6:09 PM CDT 01/17/2023 6:09 PM CDT Evans Schreiber MD LAB_1 Final Result Performing Organization Address City/[facility]/ZIP Co de Phone Number [facility] [address] [place], [place] [phone] [place] [address] * Hepatitis C Antibody, with Reflex (01/17/2023 6:09 PM CDT) Hepatitis C Antibody Negative (Non Reactive) Negative (Non Reactive) 01/17/2023 10:28 PM CDT [facility] Comment:Antibodies to HCV no t detected. Does not exclude the possiblity of exposure to HCV. Blood Venipuncture / Unknown 01/17/2023 6:09 PM CDT 01/17/2023 6:09 PM CDT Evans Schreiber MD LAB_1 Final Result [facility] [address] [place] [address], [facility] from Last 3 Months or Most Recently Relevant to Health Maintenance Insurance [facility] Care Teams Washer Operator Relationship Specialty Start Date End Date Jethro Hunter PA-C [address] [place] [address] PCP - General Physician [place] 03/10/23
[2024-08-26] MEDS: LIDOCAINE 1%-EPI 1:100,000 3 ML INFILTRATI (20:01)
== END 2024-08-26 19:58 | disposition home or self-care (01) ==
PROVIDERS: Emergency Provider Student in an Organized Health Care Education/Training Program; PCP Physician Assistant Medical
DX: S01.91XA Laceration without foreign body of unspecified part of head, initial encounter (principal); W22.8XXA Striking against or struck by other objects, initial encounter
CPT/HCPCS: 12002; 99283